=== PATIENT | female | born 1950 | race Caucasian/White ===

== ENCOUNTER 2025-07-28 15:24 | Emergency (ER) | payer MEDICARE ==
[2025-07-28 16:21] LABS: #Basophils 0.06 10x3/uL (0.0-0.2); #Eosinophils 0.13 10x3/uL (0.0-0.5); #Monocytes 0.74 10x3/uL (0.0-1.1); #Neutrophils 13.41 10x3/uL (1.5-8.4); %Basophils 0.4 % (0.0-2.0); %Eosinophils 0.8 % (0.0-6.0); %Lymphocytes 8.6 % (18.0-47.0); %Monocytes 4.7 % (0.0-10.0); %Neutrophils 85.1 % (40.0-75.0); Hematocrit 35.3 % (34.9-44.5); Hemoglobin 11.8 g/dL (12.0-15.5); Mean Corpuscular Hemoglobin 27.1 pg (27.0-33.0); Mean Corpuscular Volume 81.0 fL (81.6-98.3); Platelet Count 343 10x3/uL (150-450); Red Blood Cell (RBC) Count 4.36 10x6/uL (3.90-5.03); White Blood Cell (WBC) Count 15.76 10x3/uL (3.5-10.5)
[2025-07-28 16:30] LABS: INR-International Normal Ratio 1.2; PTT 32.6 sec (22.0-33.0); Prothrombin Time 12.6 sec (9.5-12.1)
[2025-07-28 16:33] LABS: ALT (SGPT) 13 U/L (Less than 34); AST (SGOT) 20 U/L (11-34); Albumin 3.8 g/dL (3.1-4.5); Alkaline Phosphatase 93 U/L (40-110); Anion Gap 12 mmol/L (10-20); BUN (Urea Nitrogen) 14 mg/dL (9.8-20.1); Bilirubin, Total 0.6 mg/dL (0.3-1.2); Calc. Creatinine Clearance 0 mL/min (70-130); Calcium 9.0 mg/dL (7.8-10.44); Carbon Dioxide 22 mmol/L (23-31); Chloride 99 mmol/L (98-107); Globulin 3.1 g/dL (2.4-3.5); Glucose 148 mg/dL (83-110); Potassium 3.7 mmol/L (3.5-5.1); Sodium 129 mmol/L (136-145)
[2025-07-28] MEDS ORDERED: Ketorolac Tromethamine 30 MG (1 mL) VIAL ONE (17:24)
[2025-07-28] MEDS ORDERED: Ondansetron PF 4 MG/2 ML Vial ONE (17:26)
[2025-07-28] MEDS ORDERED: cefTRIAXone (ROCEPHIN) 2 GM VIAL ONE ×2 (17:26→17:32)
[2025-07-28 18:02] LABS: Glucose, Urine (Dipstick) Normal (Negative); Leukocyte 500 (Negative); Protein, Urine (Dipstick) 100 mg/dl (Neg-Trace); Specific Gravity, Urine 1.015 (1.005-1.030)
[2025-07-28 18:31] LABS: CAUTI Indications for Culture Dysuria,urgency,freq; RBC/HPF Greater than 50 HPF (0-3); WBC/HPF Greater than 50 HPF (0-3)
[2025-07-28 18:32] LABS: Bacteria/HPF 4+ HPF (None Seen)
[2025-07-28 18:33] LABS: Mucous/LPF 1+ LPF (<2+)
[2025-07-28 18:34] LABS: Urine Culture Reflex Yes Yes
== END 2025-07-28 19:34 | disposition home or self-care (01) ==
LOC: CSHERS 15:24
DX: N30.01 Acute cystitis with hematuria (principal); K52.9 Noninfective gastroenteritis and colitis, unspecified; I10 Essential (primary) hypertension; E11.9 Type 2 diabetes mellitus without complications; Z75.3 Unavailability and inaccessibility of health-care facilities
CPT/HCPCS: 74177; 80053; 81001; 83605; 85025; 85610; 85730; 87040; J0696; J1885; J2405